=== PATIENT | male | born 1990 | race African-American/Black ===

== ENCOUNTER 2017-06-29 12:46 | Day surgery (SDC) | payer BC ==
--- NOTE | 2017-06-18 09:42 | HP ---
PREOPERATIVE HISTORY AND PHYSICAL: DATE OF ADMISSION: Patient is scheduled for same-day surgery admission by Dr. Fish on 06/29/17. DATE OF PREOPERATIVE HISTORY AND PHYSICAL EXAMINATION: 06/15/17. ATTENDING SURGEON: Dr. Neo Fish * (dictated by Hollie Newman NP). CHIEF COMPLAINT: Epigastric hernia. HISTORY OF PRESENT ILLNESS: The patient is a 27-year-old male evaluated by Dr. Fish for an epigastric hernia. The patient reports that he noted this incidentally during massage training. He saw his primary care provider and was sent for a CT scan of the abdomen. He reports that the area is "uncomfortable" during activity, typically personal training and martial arts, and especially at the end of the day. He denies any change in bowel or bladder habits or any signs to indicate incarceration or strangulation. He has never had abdominal surgery. Dr. Fish examined the patient and noted a tender less than 1-cm supraumbilical mass. No palpable hernia defect. Dr. Fish reviewed the CAT scan and the small supraumbilical subcutaneous mass corresponds to the small ventral hernia noted on the CT. Dr. Fish has recommended open epigastric hernia repair as a same-day surgery procedure and has described the nature of the surgical procedure, the relevant risks and benefits and today I reviewed the typical postoperative care and recovery. The patient has had a chance to ask questions and stated that he understands the information and is satisfied with the answers given to his questions. He will sign surgical consent on the day of surgery. PAST MEDICAL HISTORY: Generally healthy, no acute or chronic conditions. PAST SURGICAL HISTORY: Right labrum repair in 2012. MEDICATIONS: None currently. ALLERGIES: PENICILLIN causes severe rash. FAMILY HISTORY: No known anesthesia complications, bleeding tendencies, or clotting disorders. 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 He is single and is an occasional smoker and drinks a few alcoholic beverages on weekends. REVIEW OF SYSTEMS: Constitutional: No fevers, chills, excessive fatigue, or weight loss. Endocrine: No diabetes or thyroid disease. Hematologic: No easy bruising or bleeding. No history of blood transfusions. No history of deep vein thrombosis or pulmonary embolism. Respiratory: No dyspnea on exertion. No chronic cough. Cardiovascular: No anginal chest pain or palpitations. Gastrointestinal: No nausea, vomiting, diarrhea, or constipation. No change in bowel habits. Genitourinary: No dysuria. No hematuria. Musculoskeletal: No chronic back or joint pain. Neurologic: No headache or blurred vision or areas of focal weakness or numbness. General: No previous anesthesia complications. PHYSICAL EXAMINATION GENERAL SURVEY: The patient is a 27-year-old male, well developed, well nourished, in no acute distress. VITAL SIGNS: Height 71 inches, weight 195 pounds, body mass index 27.2. Blood pressure 112/68, pulse 54 and regular, respiratory rate 16, temperature 98.3 tympanic. HEENT: Benign. NECK: Supple. No cervical lymphadenopathy. LUNGS: Breath sounds bilaterally clear and equal. HEART: Regular rate and rhythm. No murmurs or rubs appreciated. ABDOMEN: Active bowel sounds, flat, soft, tender, supraumbilical mass less than 1 cm. No palpable hernia defect. No other obvious masses or organomegaly. BACK: No CVA tenderness. GENITALIA: Deferred. RECTAL: Deferred. EXTREMITIES: Warm without edema or skin ulceration. NEUROLOGIC: Alert and oriented x3. Steady gait. SKIN: Warm, dry, and intact. IMPRESSION: Epigastric hernia. PLAN: Same-day surgery admission to Dr. Fish' service for open repair of epigastric hernia on 06/29/17. LUPE NEWMAN NP [id number]/[facility] #: [id number] DARIO
[~2017-06-29 12:46] MED LIST: Buffered Lidocaine 0.9% SYRIN* 5 ML/SYR SYRINGE INTRADERM ONE; Dexamethasone IV* 4 MG/ML 1 ML (4 MG) IV SLOW PU ONE; Famotidine IV* 10 MG/ML 2 ML (20 mg) IV ONE
[2017-06-29] MEDS ORDERED: Famotidine IV* 10 MG/ML 2 ML (20 mg) ONE (12:59)
[2017-06-29] MEDS ORDERED: Clindamycin 900 MG IVPREMIX(* 900 MG/50 ML SDV IV ONE (12:59)
[2017-06-29] MEDS ORDERED: Dexamethasone IV* 4 MG/ML 1 ML (4 MG) ONE (12:59)
[2017-06-29] MEDS ORDERED: Buffered Lidocaine 0.9% SYRIN* 5 ML/SYR SYRINGE ONE (12:59)
[2017-06-29] MEDS ORDERED: Lidocaine 1% INJ* 10 MG/ML 30 ML SDV ONE (13:36)
[2017-06-29] MEDS ORDERED: oxyCODONE/Acetamin 5/325 MG* TAB PO PRN ×2 (13:37→15:03)
[2017-06-29] MEDS ORDERED: fentaNYL* 50 MCG/ML 2 ML VIAL (100 MCG VIAL) IV PRN (13:37)
[2017-06-29] MEDS ORDERED: PROCHLORPERAZINE INJ 5 MG/ML 2 ML VIAL IV PRN (13:37)
[2017-06-29] MEDS ORDERED: HYDROcodone/ACETAMIN 5-325 MG* 1 TAB PO PRN (13:37)
[2017-06-29] MEDS ORDERED: Bupivacaine 0.5% SDV PF* 30 ML VIAL ONE (13:37)
[2017-06-29] MEDS ORDERED: Midazolam* 1 MG/ML 5 ML VIAL (5 MG) ONE (14:06)
[2017-06-29] MEDS ORDERED: fentaNYL* 50 MCG/ML 2 ML VIAL (100 MCG VIAL) ONE (14:06)
[2017-06-29] MEDS ORDERED: Lidocaine 2% PF * 5 ML VIAL ONE (14:11)
[2017-06-29] MEDS ORDERED: Propofol* 10 MG/ML 20 ML BTL IV PUSH ONE (14:11)
[2017-06-29] MEDS ORDERED: Ketorolac INJ* 30 MG/ML 1 ML VIAL ONE (14:17)
[2017-06-29] MEDS ORDERED: Bupivacaine 0.25% SDV* 30 ML ONE (14:31)
[2017-06-29] MEDS ORDERED: Ondansetron INJ* 2 MG/ML VIAL ONE (14:46)
[2017-06-29 16:37] VITALS: BP 113/48
--- NOTE | 2017-06-30 05:47 | OP ---
DATE OF OPERATION: 06/29/17 - [facility] DATE OF : 89 SURGEON: Neo Fish MD RUBBER PROCESS HAND: BETINA Flores ANESTHESIOLOGIST: Mele Burton MD ANESTHESIA: Local MAC. PRE-OP DIAGNOSIS: Supraumbilical hernia. POST-OP DIAGNOSIS: Supraumbilical hernia. OPERATIVE PROCEDURE: Open repair, supraumbilical hernia. ESTIMATED BLOOD LOSS: Minimal. IV FLUIDS: Crystalloid. SPECIMEN: None. DRAINS: None. COMPLICATIONS: None. COUNTS: The instrument, needle and sponge count correct. FINDINGS: The patient had a 5-mm supraumbilical hernia with incarcerated fat. DESCRIPTION OF PROCEDURE: The patient was brought to the operating room and placed on the table supine. The patient was administered intravenous antibiotics. Prepped and draped in the usual sterile fashion, and time-out was then performed. Local anesthetic was infiltrated as a field block and the incision was made transversely over the palpable mass. Subcutaneous tissues were divided with cautery and then the protruding fat incarcerated thorough the small midline supraumbilical hernia was identified. The fat was dissected free and it was reduced and the hernia defect was closed with 0 Ethibond suture in an interrupted figure-of-8 fashion. The wound was then closed in 2 layers with 3- 0 Vicryl for the subcutaneous tissue and 4-0 Monocryl for the skin. Steri- Strips were applied and the patient tolerated procedure well, was transferred to Recovery. [id number]/[facility] #: [id number] MTDD
== END 2017-06-29 16:30 | disposition home or self-care (01) ==
LOC: OR 12:46
PROVIDERS: ATTEND Surgery
DX: K43.9 Ventral hernia without obstruction or gangrene (principal)
CPT/HCPCS: J1100; J1885; J2250; J2405; J2704; J3010

== ENCOUNTER 2019-07-21 14:15 | Emergency (ER) | payer BC, OTHER ==
[2019-07-21 14:32] VITALS: BP 130/61
[2019-07-21] MEDS ORDERED: Ondansetron ODT TAB* 4 MG PO ONE (15:21)
--- NOTE | 2019-07-21 15:26 | UC ---
Nausea/Vomiting/Diarrhea HPI - HPI Summary HPI Summary: 5 DAYS OF STOMACH CRAMPING AND WATERY DIARRHEA. STATES HE IS GOING EVERY HOUR AT TIMES. HAS NAUSEA BUT NO VOMITING. NO FEVER. DENIES ANY TRAVEL OR UNUSUAL FOODS. NO RECENT ANTIBIOTIC USE. DOES NOT WORK WITH ANIMALS. - History of Current Complaint Chief Complaint: UCGI Stated Complaint: DIARRHEA ABD PAIN Time Seen by Provider: 07/21/19 14:50 Hx Obtained From: Patient Onset/Duration: Sudden Onset, Lasting Days, Still Present Timing: Constant Severity Initially: Moderate Severity Currently: Moderate Pain Intensity: 8 Pain Scale Used: 0-10 Numeric Location: Diffuse Character: Cramping Aggravating Factor(s): Nothing Alleviating Factor(s): Nothing Nausea/Vomiting Presence: Nauseated Diarrhea Presence: Yes Diarrhea Frequency: Every 1-2 hours Diarrhea Duration: 3-7 days Diarrhea Characteristics: Watery, Malodorous - Allergies/Home Medications Allergies/Adverse Reactions: Allergies Allergy/AdvReac Type Severity Reaction Status Date / Time penicillin G Allergy Hives Verified 07/21/19 14:32 PMH/Surg Hx/FS Hx/Imm Hx Previously Healthy: Yes - Surgical History Surgical History: Yes Surgery Procedure, Year, and Place: right shoulder labrum repair. tubes placed as a young child. hernia surgery - Family History Known Family History: Positive: Non-Contributory - Social History Alcohol Use: Weekly Alcohol Amount: couple on the weekends Substance Use Type: Marijuana Substance Use Comment - Amount & Last Used: 1-2 TIMES PER DAY Smoking Status (MU): Current Some Day Smoker Amount Used/How Often: 3-4 per day on weekends x 10 years Have You Smoked in the Last Year: Yes Household Exposure Type: Cigarettes Review of Systems All Other Systems Reviewed And Are Negative: Yes Constitutional: Positive: Negative Respiratory: Positive: Negative Cardiovascular: Positive: Negative Gastrointestinal: Positive: Abdominal Pain, Diarrhea, Nausea Genitourinary: Positive: Negative Physical Exam Triage Information Reviewed: Yes Appearance: Well-Appearing, No Pain Distress, Well-Nourished Vital Signs: Initial Vital Signs Temp 98.7 F 07/21/19 14:28 Pulse 74 07/21/19 14:28 Resp 18 07/21/19 14:28 BP 130/61 07/21/19 14:28 Pulse Ox 100 07/21/19 14:28 Vital Signs Reviewed: Yes Eyes: Positive: Conjunctiva Clear ENT: Positive: Hearing grossly normal Neck: Positive: Supple Respiratory: Positive: No respiratory distress, No accessory muscle use Cardiovascular: Positive: Pulses Normal Abdomen Description: Positive: Soft, Other: - DIFFUSELY TENDER, WORST RLQ. NO REBOUND OR RIGIDITY. NEG PSOAS, NEG OBTURATOR. Negative: CVA Tenderness (R), CVA Tenderness (L), Distended, Guarding Bowel Sounds: Positive: Present Musculoskeletal: Positive: No Edema Neurological: Positive: Alert Psychological: Positive: Age Appropriate Behavior Skin: Negative: Rashes Naus/Vom/Diarrhea Course/Dx - Course Course Of Treatment: SYMPTOMS WILL LIKELY BE SELF-LIMITED. ENCOURAGED TO STAY WELL-HYDRATED. CLEAR LIQUIDS/BLAND DIET. ZOFRAN NEEDED FOR NAUSEA. STOOL SAMPLE SENT FOR TESTING. TO THE ER WITHOUT FAIL IF SYMPTOMS WORSEN. - Differential Dx/Diagnosis Provider Diagnosis: Acute diarrhea Condition At Discharge: Stable Discharge ED - Sign-Out/Discharge Documenting (check all that apply): Patient Departure All imaging exams completed and their final reports reviewed: No Studies - Discharge Plan Condition: Stable Disposition: HOME Prescriptions: Ondansetron ODT TAB* [Zofran Odt TAB*] 4 mg PO Q6H PRN #20 tab.odt PRN Reason: Nausea/Vomiting Patient Education Materials: Acute Diarrhea (ED) Referrals: [facility] [Outside] - If Needed Additional Instructions: MANY CAUSES OF DIARRHEA ARE SELF-LIMITED AND RESOLVE ON THEIR OWN WITHIN 1-2 WEEKS. BE SURE TO STAY WELL-HYDRATED. STICK TO A CLEAR LIQUID DIET FOR NOW. YOUR SYMPTOMS START TO IMPROVE YOU MAY ADVANCE TO A BLAND DIET SUCH TOAST , DRY CEREAL, APPLESAUCE, BANANAS. ZOFRAN PRESCRIBED TO HELP WITH NAUSEA. STOOL SPECIMEN COLLECTED HERE IN THE UC AND HAS BEEN SENT FOR TESTING. WE WILL CALL YOU WITH ANY ABNORMAL RESULTS. GO TO THE ER WITHOUT FAIL IF YOU DEVELOP WORSENING PAIN, WORSENING WATERY DIARRHEA, BLOOD PER RECTUM, FEVER, VOMITING OR ANY OTHER CONCERNING SYMPTOMS. FOLLOW-UP WITH GI IF NEEDED. [facility] Address: [address], [place] [address] - Billing Disposition and Condition Condition: STABLE Disposition: Home
--- NOTE | 2019-07-22 08:23 | UC ---
- Progress Note Progress Note: PROGRESS NOTE: LAB RESULTS:stool evaluation is pending except for the elective foreign which is positive. MDM:we will call the patient to document his current condition. Garrick Buitrago MD Course/Dx - Diagnoses Provider Diagnoses: Acute diarrhea Discharge ED - Sign-Out/Discharge Documenting (check all that apply): Post-Discharge Follow Up All imaging exams completed and their final reports reviewed: No Studies - Discharge Plan Condition: Stable Disposition: HOME Prescriptions: Ondansetron ODT TAB* [Zofran Odt TAB*] 4 mg PO Q6H PRN #20 tab.odt PRN Reason: Nausea/Vomiting Patient Education Materials: Acute Diarrhea (ED) Referrals: [facility] [Outside] - If Needed Additional Instructions: MANY CAUSES OF DIARRHEA ARE SELF-LIMITED AND RESOLVE ON THEIR OWN WITHIN 1-2 WEEKS. BE SURE TO STAY WELL-HYDRATED. STICK TO A CLEAR LIQUID DIET FOR NOW. YOUR SYMPTOMS START TO IMPROVE YOU MAY ADVANCE TO A BLAND DIET SUCH TOAST , DRY CEREAL, APPLESAUCE, BANANAS. ZOFRAN PRESCRIBED TO HELP WITH NAUSEA. STOOL SPECIMEN COLLECTED HERE IN THE UC AND HAS BEEN SENT FOR TESTING. WE WILL CALL YOU WITH ANY ABNORMAL RESULTS. GO TO THE ER WITHOUT FAIL IF YOU DEVELOP WORSENING PAIN, WORSENING WATERY DIARRHEA, BLOOD PER RECTUM, FEVER, VOMITING OR ANY OTHER CONCERNING SYMPTOMS. FOLLOW-UP WITH GI IF NEEDED. [facility] Address: [address], [place] [address] - Billing Disposition and Condition Condition: STABLE Disposition: Home
== END 2019-07-21 16:00 | disposition home or self-care (01) ==
LOC: UCEAST 14:15
DX: R19.7 Diarrhea, unspecified (principal); R11.0 Nausea; F17.210 Nicotine dependence, cigarettes, uncomplicated; R10.9 Unspecified abdominal pain; Z88.0 Allergy status to penicillin
CPT/HCPCS: 83630; 87045; 87046; 87077; 87328; 87329; 87493; 87899; 99212; A9270-GY; G0463

== ENCOUNTER 2019-07-23 09:26 | Emergency (ER) | payer OTHER ==
[2019-07-23] MEDS ORDERED: Dicyclomine CAP* 10 MG PO ONE (10:08)
[2019-07-23] MEDS ORDERED: NS 0.9% 1000 ML** 1,000 ML IV ONE (10:09)
[2019-07-23 10:27] LABS: Hematocrit 46 % (42-52); Mean Corpuscular HGB Conc 35 g/dL (31-36); Mean Corpuscular Hemoglobin 29 pg (27-31); Mean Corpuscular Volume 82 fL (80-94); Platelet Count 226 10^3/uL (150-450); Red Cell Distribution Width 13 % (10-15); White Blood Count 7.1 10^3/uL (3.5-10.8)
[2019-07-23 10:41] LABS: Albumin 4.1 g/dL (3.2-5.2); Albumin/Globulin Ratio 1.4 (1-3); BUN/Creatinine Ratio 9.2 (8-20); C Reactive Protein 4.19 mg/L (<8.01); Calcium 9.5 mg/dL (8.6-10.3); EGFR Non-African American 60.3 (>60); Potassium 4.3 mmol/L (3.5-5.0); Total Bilirubin 0.5 mg/dL (0.2-1.0); Total Protein 7.1 g/dL (6.4-8.9)
[2019-07-23 10:45] LABS: ABS Eosinophils 0.2 10^3/ul (0-0.6); ABS Lymphocytes 1.5 10^3/ul (1.0-4.8); ABS Monocytes 1.8 10^3/ul (0-0.8); ABS Neutrophils 3.6 10^3/ul (1.5-7.7); Eosinophil % 2.5 %; Lymphocyte % 21.4 %
--- NOTE | 2019-07-23 10:46 | ED ---
Abdominal Pain/Male - HPI Summary HPI Summary: The pt is a 29 yr old male [facility]/o epigastric abd pain beginning 1 week ago. He notes that he has not been able to drink or eat much since passed it all through diarrhea every time. He rates his current pain a 3/ 10. He notes that eating or drinking increases the abd pain but no alleviating factors noted. He also denies vomiting, fever, and rash. - History of Current Complaint Chief Complaint: EDAbdPain Stated Complaint: LOWER ABD PAIN Time Seen by Provider: 07/23/19 10:00 Hx Obtained From: Patient Onset/Duration: Sudden Onset, Lasting Weeks, Still Present Timing: Intermittent, Lasting Weeks Severity Initially: Mild Severity Currently: Mild Pain Intensity: 3 Pain Scale Used: 0-10 Numeric Location: Epigastric Aggravating Factor(s): Nothing Alleviating Factor(s): Nothing Associated Signs And Symptoms: Positive: Negative - rash, blood in stool, Diarrhea. Negative: Fever, Vomiting - Allergies/Home Medications Allergies/Adverse Reactions: Allergies Allergy/AdvReac Type Severity Reaction Status Date / Time penicillin G Allergy Hives Verified 07/21/19 14:32 PMH/Surg Hx/FS Hx/Imm Hx Endocrine/Hematology History: Denies: Hx Diabetes Cardiovascular History: Denies: Hx Hypertension, Hx Pacemaker/ICD History: Denies: Hx Renal Disease Sensory History: Denies: Hx Contacts or Glasses, Hx Hearing Aid Opthamlomology History: Denies: Hx Contacts or Glasses Psychiatric History: Denies: Hx Panic Disorder - Surgical History Surgery Procedure, Year, and Place: right shoulder labrum repair. tubes placed as a young child. hernia surgery Hx Anesthesia Reactions: No Infectious Disease History: No Infectious Disease History: Denies: Traveled Outside the [place] in Last 30 Days - Family History Known Family History: Negative: Renal Disease - Social History Alcohol Use: Weekly Alcohol Amount: couple on the weekends Substance Use Type: Reports: Marijuana Substance Use Comment - Amount & Last Used: 1-2 TIMES PER DAY Smoking Status (MU): Current Some Day Smoker Amount Used/How Often: 3-4 per day on weekends x 10 years Have You Smoked in the Last Year: Yes Review of Systems Negative: Fever Positive: Abdominal Pain, Diarrhea. Negative: Vomiting Negative: Rash All Other Systems Reviewed And Are Negative: Yes Physical Exam - Summary Physical Exam Summary: Constitutional: Well-developed, Well-nourished, Alert. (-) Distressed Skin: Warm, Dry HENT: Normocephalic; Atraumatic, dry oral mucousa Eyes: Conjunctiva normal Neck: Musculoskeletal ROM normal neck. (-) JVD, (-) Stridor, (-) Tracheal deviation Cardio: Rhythm regular, rate normal, Heart sounds normal; Intact distal pulses; Radial pulses are 2+ and symmetric. (-) Murmur Pulmonary/Chest wall: Effort normal. (-) Respiratory distress, (-) Wheezes, (-) Rales Abd: Soft, diffuse abd tenderness, (-) Distension, (-) Guarding, (-) Rebound Musculoskeletal: (-) Edema Lymph: (-) Cervical adenopathy Neuro: Alert, Oriented x3 Psych: Mood and affect Normal Triage Information Reviewed: Yes Vital Signs On Initial Exam: Initial Vitals Temp Pulse Resp BP Pulse Ox 97.8 F 75 18 132/79 98 07/23/19 09:42 07/23/19 09:42 07/23/19 09:42 07/23/19 09:42 07/23/19 09:42 Vital Signs Reviewed: Yes Procedures - Sedation Patient Received Moderate/Deep Sedation with Procedure: No Diagnostics - Vital Signs Vital Signs Temp Pulse Resp BP Pulse Ox 07/23/19 09:42 97.8 F 75 18 132/79 98 - Laboratory Lab Results: Lab Results 07/23/19 Range/Units 10:16 WBC 7.1 (3.5-10.8) 10^3/uL RBC 5.60 H (4.18-5.48) 10^6 /uL Hgb 16.0 (14.0-18.0) g/dL Hct 46 (42-52) % MCV 82 (80-94) fL MCH 29 (27-31) pg MCHC 35 (31-36) g/dL RDW 13 (10-15) % Plt Count 226 (150-450) 10^3/uL MPV 8.0 (7.4-10.4) fL Neut % (Auto) Pending Lymph % (Auto) Pending Bradford % (Auto) Pending Eos % (Auto) Pending Baso % (Auto) Pending Absolute Neuts (auto) Pending Absolute Lymphs (auto) Pending Absolute Monos (auto) Pending Absolute Eos (auto) Pending Absolute Basos (auto) Pending Absolute Nucleated RBC Pending Nucleated RBC % Pending Result Diagrams: 07/23/19 10:16 07/23/19 10:16 Lab Statement: Any lab studies that have been ordered have been reviewed, and results considered in the medical decision making process. - CT CT A/P CT Interpretation Completed By: Radiologist Summary of CT Findings: IMPRESSION: DIFFUSE MUCOSAL THICKENING OF THE COLON MOST CONSISTENT WITH COLITIS. ED Physician has reviewed this report. Abdominal Pain Male Course/Dx - Course Course Of Treatment: Patient is here with one week of diarrhea and periumbilical pain. Patient has no reflex symptoms of diarrhea and had a stool culture sent on Wednesday from [facility]. Patient has no etiology discovered on his stool results so far. Patient blood performed was grossly unremarkable. CT scan was discussed with patient and the low likelihood of anything acute been shown and patient elected to have a CT scan. Patient's CT scan shows colitis which is likely infectious in nature. 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 Patient is given GI follow-up to make sure this is not a first episode of IBD. - Diagnoses Provider Diagnoses: Colitis, Diarrhea Discharge ED - Sign-Out/Discharge Documenting (check all that apply): Patient Departure - discharge - Discharge Plan Condition: Stable Disposition: HOME Prescriptions: Amoxicillin/Clavulanate TAB* [Augmentin TAB 875*] 875 mg PO BID 10 Days #20 tab Dicyclomine CAP* [Bentyl CAP*] 10 mg PO TID PRN #20 cap PRN Reason: cramping Patient Education Materials: Colitis (ED) Referrals: Jerardo Sanchez MD [Medical Doctor] - 3 Days Additional Instructions: Please follow up with Dr. Sanchez within 3 days. Please return to the ED for any new or worsening symptoms. Take antibiotics as prescribed. - Billing Disposition and Condition Condition: STABLE Disposition: Home - Attestation Statements Document Initiated by Scribe: Yes Documenting Scribe: Karthik Bull Provider For Whom Scribe is Documenting (Include Credential): Ovidio Jim MD Scribe Attestation: Karthik Manriquez, scribed for Ovidio Jim MD on 07/23/19 at 1433. Scribe Documentation Reviewed: Yes Provider Attestation: The documentation as recorded by the scribe, Karthik Bull accurately reflects the service I personally performed and the decisions made by me, Ovidio Jim MD Status of Scribe Document: Viewed
[2019-07-23] MEDS ORDERED: Iohexol 300* (CONTRAST) 10 ML SDV IV ONE (11:01)
[2019-07-23 12:18] VITALS: BP 127/69
--- NOTE | 2019-07-24 17:16 | UC ---
- Progress Note Progress Note: 29 year old male with stool cultures + for Cryptosporidium. Typically self- limiting, however if symptoms continue, Nitazoxanide can be called in. Patient should stop Augmentin. -Radha Souza PAC Course/Dx - Diagnoses Provider Diagnoses: Colitis, Diarrhea Discharge ED - Sign-Out/Discharge Documenting (check all that apply): Patient Departure - Discharge Plan Condition: Stable Disposition: HOME Prescriptions: Amoxicillin/Clavulanate TAB* [Augmentin TAB 875*] 875 mg PO BID 10 Days #20 tab Dicyclomine CAP* [Bentyl CAP*] 10 mg PO TID PRN #20 cap PRN Reason: cramping Patient Education Materials: Colitis (ED) Referrals: Jerardo Sanchez MD [Medical Doctor] - 3 Days Additional Instructions: Please follow up with Dr. Sanchez within 3 days. Please return to the ED for any new or worsening symptoms. Take antibiotics as prescribed. - Billing Disposition and Condition Condition: STABLE Disposition: Home
== END 2019-07-23 12:22 | disposition home or self-care (01) ==
LOC: ED 09:26
DX: K52.9 Noninfective gastroenteritis and colitis, unspecified (principal); A07.2 Cryptosporidiosis; Z88.0 Allergy status to penicillin; Z72.0 Tobacco use
CPT/HCPCS: 36415; 74177; 80053; 83690; 85025; 86140; 99282; A9270-GY; Q9967